=== PATIENT | male | born 1995 | race African-American/Black ===

== ENCOUNTER 2022-04-22 08:20 | Emergency (ER) | payer OTHER ==
[2022-04-22] MEDS ORDERED: Bupivacaine 0.25% 10 ML VIAL ONE (08:36)
== END 2022-04-22 09:01 | disposition home or self-care (01) ==
LOC: ERS 08:20
DX: S68.120A Partial traumatic metacarpophalangeal amputation of right index finger, initial encounter (principal); W26.8XXA Contact with other sharp object(s), not elsewhere classified, initial encounter; Y92.89 Other specified places as the place of occurrence of the external cause; Y99.0 Civilian activity done for income or pay
CPT/HCPCS: 64450; S0020

== ENCOUNTER 2022-05-01 17:56 | Emergency (ER) | payer SELFPAY ==
[~2022-05-01 17:56] MED LIST: Iopamidol-370 76% 500 ML 1 ML ONE
[2022-05-01] MEDS ORDERED: Morphine 4 MG/ML VIAL ONE (18:20)
[2022-05-01] MEDS ORDERED: Ondansetron PF 4 MG/2 ML Vial ONE (18:21)
[2022-05-01 18:43] LABS: #Lymphocytes 1.2 thou/uL (1.20-3.40); #Monocytes 0.3 thou/uL (0.11-0.59); #Neutrophils 6.9 thou/uL (1.40-6.50); %Basophils 0.2 % (0.0-1.0); %Eosinophils 0.1 % (0.0-10.0); %Lymphocytes 13.7 % (21.0-51.0); %Monocytes 3.7 % (0.0-10.0); %Neutrophils 82.2 % (42.0-75.0); Mean Corpuscular HGB CONC 31.5 g/dL (32.0-36.0); Mean Corpuscular Hemoglobin 28.1 pg (27.0-31.0); Mean Corpuscular Volume 89.3 fl (78.0-98.0); Mean Platelet Volume 7.6 fL (7.4-10.4); Platelet Count 199 thou/uL (130-400); RBC Distribution Width 12.8 % (11.5-14.5); White Blood Cell (WBC) Count 8.4 thou/uL (4.8-10.8)
[2022-05-01 18:57] LABS: ALT (SGPT) 20 U/L (8-55); AST (SGOT) 16 U/L (5-34); Albumin 5.2 g/dL (3.5-5.0); Alkaline Phosphatase 64 U/L (40-110); Anion Gap 14 mmol/L (10-20); BUN (Urea Nitrogen) 12 mg/dL (8.9-20.6); Bilirubin, Total 0.9 mg/dL (0.2-1.2); Calc. Creatinine Clearance 0 mL/min (70-130); Calcium 10.6 mg/dL (7.8-10.44); Carbon Dioxide 25 mmol/L (22-29); Chloride 102 mmol/L (98-107); Estimated GFR 107; Globulin 3.6 g/dL (2.4-3.5); Glucose 132 mg/dL (70-105); Lipase 6 U/L (8-78); Potassium 4.3 mmol/L (3.5-5.1); Protein, Total 8.8 g/dL (6.0-8.3); Sodium 137 mmol/L (136-145)
== END 2022-05-01 20:22 | disposition home or self-care (01) ==
LOC: ERS 17:56
DX: R11.2 Nausea with vomiting, unspecified (principal)
CPT/HCPCS: 74177; 80053; 83690; 85025; 96374; 96375; J2270; J2405

== ENCOUNTER 2023-11-22 08:33 | Emergency (ER) | payer SELFPAY ==
[2023-11-22] MEDS ORDERED: Ketorolac Tromethamine 30 MG (1 mL) VIAL ONE (10:49)
== END 2023-11-22 11:10 | disposition home or self-care (01) ==
LOC: ERS 08:33
DX: K08.89 Other specified disorders of teeth and supporting structures (principal)
CPT/HCPCS: 96372; 99282; J1885

== ENCOUNTER 2023-11-30 20:18 | Emergency (ER) | payer SELFPAY ==
[2023-11-30] MEDS ORDERED: Ondansetron ODT 4 MG TAB ONE (20:50)
== END 2023-11-30 20:54 | disposition home or self-care (01) ==
LOC: ERS 20:18
DX: R11.10 Vomiting, unspecified (principal)
CPT/HCPCS: 99283; Q0162

== ENCOUNTER 2023-12-07 20:29 | Emergency (ER) | payer SELFPAY | END 2023-12-07 20:45 | disposition home or self-care (01) | LOC: ERS 20:29 | DX: M79.642 Pain in left hand (principal); M79.641 Pain in right hand | CPT/HCPCS: 99283 ==